=== PATIENT | male | born 1990 | race Caucasian/White ===

== ENCOUNTER 2020-11-24 04:12 | Emergency (ER) | payer BC ==
[2020-11-24 04:21] VITALS: BP 135/77; PULSE 88; TEMP 98.5; BMI 27.4
[2020-11-24] MEDS ORDERED: PANTOPRAZOLE SODIUM 40 MG VIAL IVPB ONE (04:47)
[2020-11-24] MEDS ORDERED: SODIUM CHLORIDE 1,000 ML IV STA (04:47)
[2020-11-24] MEDS ORDERED: PANTOPRAZOLE SODIUM 40 MG VIAL ONE (04:50)
[2020-11-24 05:42] LABS: BASO % 0.6 % (0-2.0); EOS % 1.2 % (0-4.5); HEMATOCRIT 43.6 % (35.4-49); HEMOGLOBIN 15.1 GM/dL (11.7-16.9); LYMPH % 40.3 % (8-40); MCH 30.1 pg (25.7-33.7); MCHC 34.7 g/dl (32.0-35.9); MEAN CELL VOLUME 86.8 fl (80-96); MEAN PLT VOLUME 7.6 fl (7.5-11.1); MONO % 5.7 % (3.8-10.2); NEUT % 52.2 % (42.8-82.8); PLATELET COUNT 277 K/MM3 (134-434); RBC 5.02 M/mm3 (4.00-5.60); RDW 13.9 % (11.9-15.9); WHITE BLOOD COUNT 7.8 K/mm3 (4.0-10.0)
[2020-11-24 05:58] LABS: EPI CELLS 14 /uL (0-25.1); HYALINE CASTS 1 /uL (0-3.1); URINE APPEARANCE CLEAR; URINE BACTERIA 249 /uL (0-1359); URINE BILIRUBIN NEGATIVE (NEGATIVE); URINE COLOR YELLOW; URINE GLUCOSE (UA) NEGATIVE (NEGATIVE); URINE KETONE TRACE (NEGATIVE); URINE LEUK ESTERASE NEGATIVE (NEGATIVE); URINE NITRITE NEGATIVE (NEGATIVE); URINE PROTEIN NEGATIVE (NEGATIVE); URINE RBC 21 /uL (0-23.9); URINE WBC 15 /uL (0-25.8)
[2020-11-24 06:13] LABS: CALCIUM 8.4 mg/dL (8.5-10.1)
[2020-11-24 06:14] LABS: ALBUMIN 3.7 g/dl (3.4-5.0); BLOOD UREA NITROGEN 13.6 mg/dL (7-18)
[2020-11-24 06:18] LABS: BILIRUBIN,TOTAL 0.2 mg/dL (0.2-1)
== END 2020-11-24 06:34 | disposition home or self-care (01) ==
LOC: FER 04:12
PROC: 3E033GC Introduction of Other Therapeutic Substance into Peripheral Vein, Percutaneous Approach (ICD-10-PCS; principal; 2020-11-24)
PROC: 3E0337Z Introduction of Electrolytic and Water Balance Substance into Peripheral Vein, Percutaneous Approach (ICD-10-PCS; 2020-11-24)
DX: K29.20 Alcoholic gastritis without bleeding (principal)
CPT/HCPCS: 36415; 80053; 81003; 83690; 85025; 87086; 99284-25

== ENCOUNTER 2024-08-10 00:23 | Emergency (ER) | payer OTHER ==
[2024-08-10 00:35] VITALS: BP 137/85; PULSE 81; RESP 20; TEMP 98.8; BMI 28.5
[2024-08-10] MEDS ORDERED: SULFAMETHOXAZOLE/TRIMETHOPRIM 800MG/160MG D.S. TABLET ONE (01:23)
[2024-08-10] MEDS: SULFAMETHOXAZOLE/TRIMETHOPRIM 800MG/160MG D.S. TABLET PO ONE (01:24)
== END 2024-08-10 01:37 | disposition home or self-care (01) ==
LOC: JER 00:23
DX: L02.01 Cutaneous abscess of face (principal)
CPT/HCPCS: 99283-25